=== PATIENT | female | born 1965 | race Asian ===

== ENCOUNTER 2025-06-26 17:05 | Emergency (ER) | payer OTHER ==
[2025-06-26] MEDS ORDERED: Aspirin Chewable 81 MG TAB ONE (17:44)
[2025-06-26] MEDS ORDERED: Nitroglycerin 0.4 MG TAB 1 EACH ONE (17:45)
[2025-06-26 17:52] LABS: #Basophils 0.07 10x3/uL (0.0-0.2); #Eosinophils 0.19 10x3/uL (0.0-0.5); #Monocytes 0.85 10x3/uL (0.0-1.1); #Neutrophils 5.69 10x3/uL (1.5-8.4); %Basophils 0.7 % (0.0-2.0); %Eosinophils 1.9 % (0.0-6.0); %Lymphocytes 33.0 % (18.0-47.0); %Monocytes 8.3 % (0.0-10.0); %Neutrophils 55.8 % (40.0-75.0); Hematocrit 41.2 % (34.9-44.5); Hemoglobin 14.5 g/dL (12.0-15.5); Mean Corpuscular Hemoglobin 30.3 pg (27.0-33.0); Mean Corpuscular Volume 86.0 fL (81.6-98.3); Platelet Count 288 10x3/uL (150-450); Red Blood Cell (RBC) Count 4.79 10x6/uL (3.90-5.03); White Blood Cell (WBC) Count 10.20 10x3/uL (3.5-10.5)
[2025-06-26 18:21] LABS: ALT (SGPT) 16 U/L (Less than 34); AST (SGOT) 18 U/L (11-34); Albumin 4.0 g/dL (3.1-4.5); Alkaline Phosphatase 96 U/L (40-110); Anion Gap 15 mmol/L (10-20); BUN (Urea Nitrogen) 14 mg/dL (9.8-20.1); Bilirubin, Total 0.2 mg/dL (0.3-1.2); Calc. Creatinine Clearance 0 mL/min (70-130); Calcium 9.0 mg/dL (7.8-10.44); Carbon Dioxide 22 mmol/L (23-31); Chloride 106 mmol/L (98-107); Globulin 2.8 g/dL (2.4-3.5); Glucose 213 mg/dL (80-115); Potassium 3.9 mmol/L (3.5-5.1); Sodium 139 mmol/L (136-145)
[2025-06-26 18:31] LABS: Troponin I 1.004 ng/mL (< 0.028)
[2025-06-26] MEDS ORDERED: Enoxaparin 60 MG (0.6 mL) SYRINGE ONE (19:41)
[2025-06-26] MEDS ORDERED: Acetaminophen 500 MG TAB ONE (20:24)
== END 2025-06-26 20:46 ==
LOC: CSHERS 17:05
DX: I21.4 Non-ST elevation (NSTEMI) myocardial infarction (principal); I10 Essential (primary) hypertension; F17.210 Nicotine dependence, cigarettes, uncomplicated; Z79.899 Other long term (current) drug therapy
CPT/HCPCS: 71045; 80053; 83880; 84484; 85025; 85379; 93005; 94760; 96372; J1650